=== PATIENT | male | born 1980 | race Caucasian/White ===

== ENCOUNTER 2018-08-04 12:38 | Emergency (ER) | payer OTHER ==
--- NOTE | 2018-08-04 13:35 | EDPHY ---
H & P Time Seen by Provider: 08/04/18 13:35 HPI/ROS: Chief complaint. Finger pain HPI. Patient is 38-year-old male visiting from [place]. Swollen painful right 3rd finger for the last several days. Seen at urgent care where there was an attempt to drain at that was unsuccessful. He is on antibiotics. There was no trauma. No previous symptoms. Patient is right handed ROS 10 systems were reviewed and negative with the exception of the elements mentioned in the history of present illness Past Medical/Surgical History: Healthy Social History: , nonsmoker, no alcohol Smoking Status: Never smoked Physical Exam: General Appearance: Alert well-developed male mild distress vital signs are stable Eyes: Pupils equal and round no pallor or injection. ENT, Mouth: Mucous membranes are moist. Respiratory: There are no retractions, lungs are clear to auscultation. Cardiovascular: Regular rate and rhythm. Gastrointestinal: Abdomen is soft and nontender, no masses, bowel sounds normal. Neurological: Awake and alert, sensory and motor exams grossly normal. Skin: Warm and dry, no rashes. Musculoskeletal: Neck is supple nontender. Extremities right 3rd digit with obvious paronychia including swelling and purulence under the skin at the base of the nail right 3rd finger. No lymphangitis Psychiatric: Patient is oriented X 3, there is no agitation. Constitutional: Initial Vital Signs Temperature (C) 36.5 C 08/04/18 12:41 Heart Rate 94 08/04/18 12:41 Respiratory Rate 17 08/04/18 12:41 Blood Pressure 135/94 H 08/04/18 12:41 O2 Sat (%) 96 08/04/18 12:41 O2 Delivery Mode Room Air Allergies/Adverse Reactions: No Known Allergies Allergy (Unverified 08/04/18 12:40) Home Medications: Medication Instructions Recorded Adderall 10 MG (*) 08/04/18 CLONAZEPAM 08/04/18 Keflex 08/04/18 LaMICtal 08/04/18 Propecia 08/04/18 Medical Decision Making Procedures: Procedure incision and drainage of paronychia. 0.5% Marcaine without epinephrine is infiltrated treated as a digital block. Good anesthesia is obtained. A 15 blade scalpel is slid down the nail and the cuticle is lifted with expression of moderate amount purulent drainage. The eponychial space is irrigated with normal saline. No further purulence produced. Patient tolerates the procedure well. Procedure performed by myself ED Course/Re-evaluation: Patient remained stable. Patient and I discussed treatment plan including criteria for return importance of follow-up further evaluation. He expresses understanding and Differential Diagnosis: Obvious paronychia. No evidence for foreign body. No lymphangitis Departure - Departure Disposition: Home, Routine, Self-Care Clinical Impression: Paronychia of finger Qualifiers: Laterality: right Qualified Code(s): L03.011 - Cellulitis of right finger Condition: Good Instructions: Paronychia (ED) Additional Instructions: Continue antibiotics until they are gone. Soak your finger in warm glass of water 3 times daily next 2-3 days for about 15 min each time. Ibuprofen 600 mg every 6 hr as needed for discomfort Activity as tolerated Return for worsening symptoms Recheck in 2-3 days for continuing symptoms
[2018-08-04 15:15] VITALS: BP 134/99
== END 2018-08-04 15:04 | disposition home or self-care (01) ==
PROC: 0H9FXZZ Drainage of Right Hand Skin, External Approach (ICD-10-PCS; principal; 2018-08-04)
DX: L03.011 Cellulitis of right finger (principal)